=== PATIENT | female | born 1970 | race Caucasian/White ===

== ENCOUNTER 2018-11-03 09:59 | Observation (INO) ==
[2018-11-03 10:46] LABS: Basophils # 0.1 10*3/uL (0.0-0.2); Basophils % 0.8 % (0.0-0.8); Eosinophils # 0.2 10*3/uL (0.0-0.87); Eosinophils % 2.9 % (0.00-10.9); Hematocrit 31.1 VOL% (35.7-47.0); Hemoglobin 9.3 GM/DL (12.0-16.0); Immature Granulocytes % 0.5 %; Immature Granulocytes Absolute 0.04 #; Lymphocytes # 2.1 10*3/uL (1.4-4.0); Lymphocytes % 24.9 % (21.3-54.2); Mean Corpuscular HGB Conc 29.9 GM/DL (32-36); Mean Platelet Volume 11.3 FL (9.6-12.0); Monocytes % 10.2 % (1.7-12.7); Neutrophils % 60.7 % (38.7-73.9); Platelet Count 271 T/CUMM (130-400); Red Blood Count 4.09 MC/CUMM (3.8-5.5); Red Cell Distribution Width 15.3 % (9.3-17.3); White Blood Count 8.3 T/CUMM (4-12)
[2018-11-03 11:03] LABS: Calcium 8.7 MG/DL (8.5-10.1); Osmolality,Calculated 278.4 MOS/KG (273-304)
[2018-11-03 12:31] LABS: Apearance,Urine CLEAR (Clear); Bacteria,Urine Occasional /HPF (Few); Bilirubin,Urine Negative (Negative); Blood, Urine Negative (Negative); Glucose,Urine (UA) Negative (Negative); Ketones,Urine 5 mg/dL (Negative); Mucus,Urine Occasional /LPF (Occasional); Nitrite,Urine Positive (Negative); Protein,Urine Negative; RBC,Urine 2 /HPF (0-4); Squamous Epithelial Cell,Urine Occasional /HPF (0-10); Urine Color Yellow (Yellow); Urine Specific Gravity 1.014 (1.001-1.035); Urine Urobilinogen < 2.0 EU/DL (0.2-1.0); WBC,Urine 3 /HPF (0-6)
[2018-11-03] MEDS ORDERED: ONDANSETRON 4 MG/2 ML VIAL IV PRN (13:37)
[2018-11-03] MEDS ORDERED: ACETAMINOPHEN 325 MG TABLET PO PRN (13:37)
[2018-11-03] MEDS ORDERED: LACTULOSE 20 GM/30 ML UDCUP PO PRN (13:37)
[2018-11-03 15:39] LABS: Risk Ratio 4.67; Thyroid Stimulating Hormone 1.98 uIU/ml (0.358-3.74); VLDL CHOLESTEROL 47.2 MG/DL
[2018-11-03] MEDS: SODIUM CHLORIDE 0.9% 1,000 ML IV SCH (15:53)
[2018-11-03] MEDS: AZITHROMYCIN INJ 500 MG in SODIUM CHLORIDE 0.9% 250 ML IV SCH (15:53)
[2018-11-03] MEDS: ENOXAPARIN 40 MG/0.4 ML SYRINGE SUBCUT SCH (15:54)
[2018-11-03] MEDS: methylPREDNISolone SOD SUC 40 MG/1 ML VIAL IV SCH (17:55)
[2018-11-04] MEDS: methylPREDNISolone SOD SUC 40 MG/1 ML VIAL IV SCH ×3 (01:23→16:58)
[2018-11-04 05:26] LABS: Basophils % 0.5 % (0.0-0.8); Eosinophils % 0.2 % (0.00-10.9); Hematocrit 31.2 VOL% (35.7-47.0); Immature Granulocytes % 0.6 %; Immature Granulocytes Absolute 0.05 #; Lymphocytes # 1.1 10*3/uL (1.4-4.0); Lymphocytes % 14.2 % (21.3-54.2); Mean Corpuscular HGB Conc 28.8 GM/DL (32-36); Mean Corpuscular Volume 76.7 FL (87-102); Mean Platelet Volume 11.4 FL (9.6-12.0); Monocytes % 1.5 % (1.7-12.7); NRBC # 0.02 10*3/uL; Platelet Count 298 T/CUMM (130-400); Red Blood Count 4.07 MC/CUMM (3.8-5.5); Red Cell Distribution Width 15.2 % (9.3-17.3)
[2018-11-04 05:28] LABS: Calcium 8.8 MG/DL (8.5-10.1); Osmolality,Calculated 287.8 MOS/KG (273-304)
[2018-11-04] MEDS: ENOXAPARIN 40 MG/0.4 ML SYRINGE SUBCUT SCH (08:53)
[2018-11-04] MEDS: AZITHROMYCIN INJ 500 MG in SODIUM CHLORIDE 0.9% 250 ML IV SCH (08:54)
[2018-11-04] MEDS: PANTOPRAZOLE 40 MG TABLET PO SCH (08:55)
[2018-11-04] MEDS: SODIUM CHLORIDE 0.9% 1,000 ML IV SCH ×2 (09:01→22:22)
[2018-11-05] MEDS: methylPREDNISolone SOD SUC 40 MG/1 ML VIAL IV SCH ×2 (00:43→09:28)
[2018-11-05 05:54] LABS: Basophils % 0.2 % (0.0-0.8); Hematocrit 27.3 VOL% (35.7-47.0); Immature Granulocytes % 0.8 %; Immature Granulocytes Absolute 0.14 #; Lymphocytes # 1.4 10*3/uL (1.4-4.0); Lymphocytes % 7.9 % (21.3-54.2); Mean Corpuscular HGB Conc 29.3 GM/DL (32-36); Mean Corpuscular Volume 76.9 FL (87-102); Monocytes % 4.5 % (1.7-12.7); NRBC # 0.03 10*3/uL; Neutrophils % 86.6 % (38.7-73.9); Platelet Count 293 T/CUMM (130-400); Red Blood Count 3.55 MC/CUMM (3.8-5.5); Red Cell Distribution Width 15.5 % (9.3-17.3); White Blood Count 18.2 T/CUMM (4-12)
[2018-11-05 06:24] LABS: Calcium 8.5 MG/DL (8.5-10.1); Osmolality,Calculated 292.4 MOS/KG (273-304)
[2018-11-05 07:57] VITALS: BP 134/80
[2018-11-05] MEDS: ENOXAPARIN 40 MG/0.4 ML SYRINGE SUBCUT SCH (09:27)
[2018-11-05] MEDS: PANTOPRAZOLE 40 MG TABLET PO SCH (09:28)
[2018-11-05] MEDS: AZITHROMYCIN INJ 500 MG in SODIUM CHLORIDE 0.9% 250 ML IV SCH (09:46)
== END 2018-11-05 10:12 | disposition home or self-care (01) ==
LOC: EDUNIT# → EDBD → N.ED 09:59 → N.2E 09:59 → SUPCPDRO 13:37 → SUATTDRO 13:37 → N.2E 15:23
PROVIDERS: ADMIT Internal Medicine; ATTEND Emergency Medicine

== ENCOUNTER 2022-05-20 18:25 | Observation (INO) ==
[2022-05-20] MEDS ORDERED: ONDANSETRON 4 MG/2 ML VIAL IV STA (19:21)
[2022-05-20] MEDS ORDERED: SODIUM CHLORIDE 0.9% 500 ML IV STA (19:21)
[2022-05-20] MEDS ORDERED: SODIUM CHLORIDE 0.9% 1,000 ML IV STA (21:00)
[2022-05-20 21:03] LABS: Basophils # 0.1 10*3/uL (0.0-0.2); Basophils % 0.8 % (0.0-0.8); Eosinophils # 0.3 10*3/uL (0.0-0.87); Eosinophils % 3.4 % (0.00-10.9); Hematocrit 28.8 VOL% (35.7-47.0); Hemoglobin 8.6 GM/DL (12.0-16.0); Immature Granulocytes % 0.5 %; Immature Granulocytes Absolute 0.04 #; Lymphocytes # 1.7 10*3/uL (1.4-4.0); Lymphocytes % 19.3 % (21.3-54.2); Mean Corpuscular HGB Conc 29.9 GM/DL (32-36); Mean Corpuscular Volume 79.3 FL (87-102); Monocytes # 0.6 10*3/uL (0.11-0.8); Monocytes % 7.3 % (1.7-12.7); Neutrophils % 68.7 % (38.7-73.9); Platelet Count 327 T/CUMM (130-400); Red Blood Count 3.63 MC/CUMM (3.8-5.5); Red Cell Distribution Width 14.6 % (9.3-17.3); White Blood Count 8.6 T/CUMM (4-12)
[2022-05-20] MEDS ORDERED: BACLOFEN 10 MG TABLET PO ONE (21:25)
[2022-05-20 21:32] LABS: Alanine Aminotransferase 13 U/L (13-56); Albumin 3.5 G/DL (3.4-5.0); Alkaline Phosphatase 65 U/L (45-117); Amylase 60 U/L (25-115); Aspartate Amino Transferase 9 U/L (0-37); Bilirubin,Total < 0.39 MG/DL (0.20-1.00); Blood Urea Nitrogen 13 MG/DL (7-18); Calcium 8.9 MG/DL (8.5-10.1); Carbon Dioxide 26 MMOL/L (21-32); Chloride 109 MMOL/L (98-107); Glucose 96 MG/DL (74-106); Osmolality,Calculated 280.3 MOS/KG (273-304); Potassium 4.1 MMOL/L (3.5-5.1); Sodium 141 MMOL/L (136-145); Total Protein 6.6 G/DL (6.4-8.2)
[2022-05-20 21:39] LABS: Bacteria,Urine Many /HPF (Few); RBC,Urine 28144 /HPF (0-4)
[2022-05-20 21:40] LABS: Glucose,Urine (UA) Negative (Negative); Ketones,Urine Negative (Negative); Protein,Urine >=300 mg/dL (Negative); Urine Appearance CLOUDY (Clear); Urine Color Red (Yellow); Urine Specific Gravity 1.025 (1.001-1.035); Urine pH 7.5 (4.5-8.0)
[2022-05-20 21:41] LABS: Bilirubin,Urine Negative (Negative); Nitrite,Urine Negative (Negative); Urine Urobilinogen 0.2 eU/dL (<2.0)
[2022-05-20 21:42] LABS: Blood, Urine Large mg/dL (Negative)
[2022-05-20] MEDS ORDERED: ZALEPLON 5 MG CAPSULE PO PRN (23:38)
[2022-05-20] MEDS ORDERED: NICOTINE 21 MG/24 HR PATCH TRANSDERM PRN (23:38)
[2022-05-20] MEDS ORDERED: diphenhydrAMINE CAP 25 MG CAPSULE PO PRN (23:38)
[2022-05-20] MEDS ORDERED: ONDANSETRON 4 MG/2 ML VIAL IV PRN (23:38)
[2022-05-20] MEDS ORDERED: hydrALAZINE 20 MG/1 ML VIAL IV PRN (23:38)
[2022-05-20] MEDS ORDERED: MORPHINE 2 MG/1 ML SYRINGE IV PRN (23:38)
[2022-05-20] MEDS ORDERED: guaiFENesin/DM ER 600-30 MG TABLET PO PRN (23:38)
[2022-05-20] MEDS ORDERED: ACETAMINOPHEN 325 MG TABLET PO PRN (23:38)
[2022-05-21] MEDS ORDERED: LEVOFLOXACIN INJ 750 MG/150 ML PREMIX IV STA (00:01)
[2022-05-21] MEDS ORDERED: BACLOFEN 20 MG TABLET PO ONE (03:48)
[2022-05-21] MEDS ORDERED: NAPROXEN 250 MG TABLET PO ONE (03:53)
[2022-05-21] MEDS ORDERED: BACLOFEN 10 MG TABLET ONE (04:07)
[2022-05-21 05:08] LABS: Basophils # 0.1 10*3/uL (0.0-0.2); Basophils % 1.2 % (0.0-0.8); Eosinophils # 0.3 10*3/uL (0.0-0.87); Eosinophils % 4.5 % (0.00-10.9); Hematocrit 26.5 VOL% (35.7-47.0); Hemoglobin 8.1 GM/DL (12.0-16.0); Immature Granulocytes % 0.2 %; Immature Granulocytes Absolute 0.01 #; Lymphocytes # 1.2 10*3/uL (1.4-4.0); Lymphocytes % 19.3 % (21.3-54.2); Mean Corpuscular HGB Conc 30.6 GM/DL (32-36); Mean Corpuscular Volume 80.8 FL (87-102); Monocytes # 0.5 10*3/uL (0.11-0.8); Monocytes % 7.8 % (1.7-12.7); Platelet Count 302 T/CUMM (130-400); Red Blood Count 3.28 MC/CUMM (3.8-5.5); Red Cell Distribution Width 14.6 % (9.3-17.3); White Blood Count 6.4 T/CUMM (4-12)
[2022-05-21 05:27] LABS: Calcium 8.5 MG/DL (8.5-10.1); Osmolality,Calculated 277.4 MOS/KG (273-304); Potassium 3.9 MMOL/L (3.5-5.1)
[2022-05-21] MEDS: PANTOPRAZOLE 40 MG TABLET PO SCH (09:39)
[2022-05-21] MEDS: SODIUM CHLORIDE 0.9% 1,000 ML IV SCH ×2 (09:44→21:21)
[2022-05-21] MEDS ORDERED: INFLUENZA VIRUS VACCINE 0.5 ML SYRINGE IM ONE (10:19)
[2022-05-21] MEDS ORDERED: SEVOFLURANE 1 UNIT/15 MINUTE INH ONE ×2 (13:23→14:14)
[2022-05-21] MEDS ORDERED: MIDAZOLAM 2 MG/2 ML VIAL ONE (13:23)
[2022-05-21] MEDS ORDERED: fentaNYL 100 MCG/2 ML VIAL ONE (13:41)
[2022-05-21] MEDS ORDERED: propofoL 200 MG/20 ML VIAL IV ONE (13:41)
[2022-05-21] MEDS ORDERED: LIDOCAINE 2% 5 ML VIAL ONE (13:41)
[2022-05-21] MEDS ORDERED: ONDANSETRON 4 MG/2 ML VIAL ONE (13:43)
[2022-05-21] MEDS ORDERED: GENTAMICIN 80 MG/2 ML VIAL ONE (13:46)
[2022-05-21] MEDS ORDERED: LACTATED RINGERS 1,000 ML IV ONE (13:54)
[2022-05-21] MEDS ORDERED: PHENYLEPHRINE 1 MG/10 ML SYRINGE IV ONE (14:00)
[2022-05-21] MEDS ORDERED: MORPHINE 10 MG/1 ML VIAL IV PRN (14:55)
[2022-05-21] MEDS ORDERED: MORPHINE 10 MG/1 ML VIAL ONE (14:57)
[2022-05-21] MEDS ORDERED: LEVOFLOXACIN INJ 750 MG/150 ML PREMIX IV SCH (21:00)
[2022-05-22 08:08] LABS: Basophils # 0.1 10*3/uL (0.0-0.2); Eosinophils # 0.2 10*3/uL (0.0-0.87); Eosinophils % 3.6 % (0.00-10.9); Hematocrit 25.7 VOL% (35.7-47.0); Hemoglobin 7.4 GM/DL (12.0-16.0); Immature Granulocytes % 0.3 %; Immature Granulocytes Absolute 0.02 #; Lymphocytes # 0.9 10*3/uL (1.4-4.0); Mean Corpuscular HGB Conc 28.8 GM/DL (32-36); Mean Corpuscular Volume 83.4 FL (87-102); Mean Platelet Volume 10.1 FL (9.6-12.0); Monocytes # 0.5 10*3/uL (0.11-0.8); Monocytes % 8.5 % (1.7-12.7); Neutrophils % 71.6 % (38.7-73.9); Platelet Count 268 T/CUMM (130-400); Red Blood Count 3.08 MC/CUMM (3.8-5.5); Red Cell Distribution Width 14.7 % (9.3-17.3); White Blood Count 6.1 T/CUMM (4-12)
[2022-05-22] MEDS ORDERED: SODIUM CHLORIDE 0.9% 1,000 ML IV PRN (08:18)
[2022-05-22 08:40] LABS: Hypochromia 1+; Microcytosis 1+; Ovalocytes Slight
[2022-05-22 08:41] LABS: Platelet Estimate Normal
[2022-05-22] MEDS ORDERED: FERROUS SULFATE 325 MG TABLET PO SCH (09:00)
[2022-05-22] MEDS ORDERED: ESCITALOPRAM 10 MG TABLET PO SCH (09:00)
[2022-05-22] MEDS ORDERED: BACLOFEN 10 MG TABLET PO SCH (09:00)
[2022-05-22] MEDS: PANTOPRAZOLE 40 MG TABLET PO SCH (09:09)
[2022-05-22 13:26] VITALS: BP 114/80
[2022-05-23] MEDS ORDERED: LEVOFLOXACIN 500 MG TABLET PO SCH (09:00)
== END 2022-05-22 17:21 | disposition home or self-care (01) ==
LOC: EDUNIT# → N.ED 18:25 → N.EDINP 18:25 → SUATTDRO 23:38 → N.TELEN 05-21 10:07
PROVIDERS: ADMIT Internal Medicine; ATTEND Family Medicine